=== PATIENT | female | born 1945 | race Caucasian/White ===

== ENCOUNTER → 2018-01-23 | Outpatient (CLI) | payer MEDICARE, OTHER ==
[~2018-01-23] MED LIST: CHOL400T55 PO; CRAN1TAB6 PO; DABI150C PO; GUAI400T6 PO; HYDR-3240 PO; MAGN30TA2 PO; METO25TA35 PO; OMEP1CAP14 PO; POTA99TA3 PO; PRAV10TA2 PO; PROP150T PO; SULF1TAB24 PO; UBID100C24 PO; VITA1TAB19 PO
== END | disposition home or self-care (01) ==
LOC: CFH 12:01
PROVIDERS: ATTEND Family Medicine
DX: R90.82 White matter disease, unspecified (principal)
CPT/HCPCS: 70544; 70551

== ENCOUNTER 2019-07-17 09:52 | Observation (INO) | payer MEDICARE, OTHER ==
[~2019-07-17] VITALS: Ht 163.8 cm; Wt 87.9 kg
[~2019-07-17 09:52] MED LIST changes: -GUAI400T6 PO; +GUAI400T80 PO
[2019-07-17] MEDS: SODIUM CHLORIDE 0.9% 1,000 ML IV SCH ×2 (10:26→13:42)
[2019-07-17 10:42] VITALS: BP 122/84
[2019-07-17] MEDS ORDERED: PLEASE ENTER HEIGHT AND WEIGHT MC SCH (11:00)
[2019-07-17] MEDS ORDERED: FLU VACC QS2019-20 36MOS UP/PF 0.5 ML IM-VACC ONE (11:30)
[2019-07-17] MEDS ORDERED: DILT240C55 PO (11:33)
[2019-07-17] MEDS ORDERED: TIZA4CAP PO (11:33)
[2019-07-17] MEDS ORDERED: ROSU10TA2 PO (11:33)
[2019-07-17] MEDS ORDERED: LEVO25TA4 PO (11:33)
[2019-07-17] MEDS ORDERED: CARV6.2512 PO (11:33)
[2019-07-17] MEDS ORDERED: APIX5TAB PO (11:33)
[2019-07-17] MEDS ORDERED: FENTANYL PF 100 MCG/2ML ONE (12:10)
[2019-07-17] MEDS ORDERED: CEFAZOLIN 1,000 MG ONE (12:10)
[2019-07-17] MEDS ORDERED: LIDOCAINE 2%, 20ML ONE (12:10)
[2019-07-17] MEDS ORDERED: CEFAZOLIN PMX 1GM/50ML 50 ML ONE (12:10)
[2019-07-17] MEDS ORDERED: MIDAZOLAM 1 MG/ML, 5ML ONE (12:10)
[2019-07-17] MEDS ORDERED: HOLD MEDICATION MC PRN (13:30)
[2019-07-17] MEDS ORDERED: HYDROcodone/APAP 5/325 TABLET PO PRN (13:30)
[2019-07-17] MEDS ORDERED: ZOLPIDEM 5MG TABLET PO PRN (13:30)
[2019-07-17] MEDS ORDERED: TIZANIDINE 4MG TABLET PO PRN (13:30)
[2019-07-17] MEDS ORDERED: METOPROLOL TARTRATE 25 MG TABLET PO SCH (18:00)
[2019-07-17 18:09] VITALS: BP 118/78
[2019-07-17] MEDS ORDERED: CEFAZOLIN PMX 1GM/50ML 50 ML IVPB SCH (19:00)
[2019-07-17 19:07] VITALS: BP 144/71
[2019-07-17] MEDS ORDERED: ACETAMINOPHEN 325 MG TABLET PO PRN (19:30)
[2019-07-17] MEDS: CEFAZOLIN PMX 1GM/50ML 50 ML IVPB SCH (19:44)
[2019-07-17] MEDS: CARVEDILOL 6.25 MG TABLET PO SCH (19:45)
[2019-07-17] MEDS: SODIUM CHLORIDE FLUSH 10ML SYR IVF SCH (19:45)
[2019-07-17] MEDS ORDERED: ATORVASTATIN 20 MG TABLET PO SCH (21:00)
[2019-07-17] MEDS ORDERED: CARVEDILOL 6.25 MG TABLET PO SCH (21:00)
[2019-07-17] MEDS ORDERED: TEMPLATE NON-FORMULARY MED. (Rosuvastatin Calcium** (Crestor**) 10 MG) PO SCH (21:00)
[2019-07-18 01:13] VITALS: BP 126/70
[2019-07-18] MEDS: CEFAZOLIN PMX 1GM/50ML 50 ML IVPB SCH ×2 (04:01→11:55)
[2019-07-18] MEDS: CARVEDILOL 6.25 MG TABLET PO SCH (05:11)
[2019-07-18] MEDS ORDERED: LEVOTHYROXINE 25 MCG TABLET PO SCH (06:00)
[2019-07-18] MEDS: SODIUM CHLORIDE FLUSH 10ML SYR IVF SCH (07:55)
[2019-07-18] MEDS ORDERED: DILTIAZEM 240 MG CAP.ER.24H PO SCH (09:00)
[2019-07-18] MEDS ORDERED: ACET325T26 PO (09:16)
[2019-07-18] MEDS ORDERED: ONDANSETRON 2MG/ML, 2ML IVPush PRN (09:30)
[2019-07-18 09:48] VITALS: BP 102/67
== END 2019-07-18 13:24 | disposition home or self-care (01) ==
LOC: CACL 09:52 → ORIP 13:12 → 5SO 13:37 → DCLOUNGE 07-18 13:17
PROVIDERS: ADMIT Internal Medicine Cardiovascular Disease; ATTEND Internal Medicine Cardiovascular Disease
DX: I48.91 Unspecified atrial fibrillation (principal); R42 Dizziness and giddiness; E78.00 Pure hypercholesterolemia, unspecified; I35.1 Nonrheumatic aortic (valve) insufficiency; I48.0 Paroxysmal atrial fibrillation; E78.5 Hyperlipidemia, unspecified; I10 Essential (primary) hypertension; E78.2 Mixed hyperlipidemia; G47.33 Obstructive sleep apnea (adult) (pediatric); Z23 Encounter for immunization; Z79.01 Long term (current) use of anticoagulants
CPT/HCPCS: 33207; 71045; 90686; 93005; 96365; 96366; 96375; 99156; 99157; C1779; C1786; C1892; G0008; G0378; J0690; J2250; J2405; J3010; J3490

== ENCOUNTER → 2020-08-05 | Outpatient (CLI) | payer MEDICARE, OTHER ==
[~2020-08-05] MED LIST changes: +ACET325T26 PO; +APIX5TAB PO; +CARV6.2512 PO; +DILT240C55 PO; +LEVO25TA4 PO; +ROSU10TA2 PO; +TIZA4CAP PO
== END | disposition home or self-care (01) ==
LOC: CFH 10:31
PROVIDERS: ATTEND Internal Medicine Cardiovascular Disease
DX: I08.3 Combined rheumatic disorders of mitral, aortic and tricuspid valves (principal); E78.5 Hyperlipidemia, unspecified; I10 Essential (primary) hypertension; Z79.01 Long term (current) use of anticoagulants
CPT/HCPCS: 93306

== ENCOUNTER 2021-04-21 08:27 | Outpatient (CLI) | payer MEDICARE, OTHER ==
[~2021-04-21 08:27] MED LIST changes: +GUAI400T57 PO; -GUAI400T80 PO; +HYDR-2214 PO; -HYDR-3240 PO; +SULF-23 PO; -SULF1TAB24 PO
== END 2021-04-21 23:59 | disposition home or self-care (01) ==
LOC: CFH 08:27
PROVIDERS: ATTEND Internal Medicine Cardiovascular Disease
DX: I08.3 Combined rheumatic disorders of mitral, aortic and tricuspid valves (principal); E78.5 Hyperlipidemia, unspecified; I11.9 Hypertensive heart disease without heart failure; Z95.0 Presence of cardiac pacemaker
CPT/HCPCS: 93306